=== PATIENT | male | born 1980 | race African-American/Black ===

== ENCOUNTER 2022-10-23 08:51 | Emergency (ER) | payer BC | END 2022-10-23 09:39 | disposition home or self-care (01) | LOC: NAV ERS 08:51 | DX: Z48.817 Encounter for surgical aftercare following surgery on the skin and subcutaneous tissue (principal); L02.213 Cutaneous abscess of chest wall; F17.210 Nicotine dependence, cigarettes, uncomplicated | CPT/HCPCS: 99282 ==

== ENCOUNTER 2022-10-27 17:14 | Emergency (ER) | payer BC | END 2022-10-27 18:32 | disposition home or self-care (01) | LOC: NAV ERS 17:14 | DX: L02.213 Cutaneous abscess of chest wall (principal); Z48.00 Encounter for change or removal of nonsurgical wound dressing; F17.210 Nicotine dependence, cigarettes, uncomplicated | CPT/HCPCS: 10060 ==

== ENCOUNTER 2022-10-30 17:11 | Emergency (ER) | payer BC | END 2022-10-30 18:22 | disposition home or self-care (01) | LOC: NAV ERS 17:11 | DX: Z48.00 Encounter for change or removal of nonsurgical wound dressing (principal); F17.210 Nicotine dependence, cigarettes, uncomplicated | CPT/HCPCS: 99282 ==

== ENCOUNTER 2022-11-01 17:20 | Emergency (ER) | payer BC | END 2022-11-01 18:09 | disposition home or self-care (01) | LOC: NAV ERS 17:20 | DX: Z48.817 Encounter for surgical aftercare following surgery on the skin and subcutaneous tissue (principal); N61.1 Abscess of the breast and nipple; F17.210 Nicotine dependence, cigarettes, uncomplicated | CPT/HCPCS: 99282 ==

== ENCOUNTER 2023-01-20 10:35 | Emergency (ER) | payer BC ==
[2023-01-20] MEDS ORDERED: Naproxen 500 MG TAB ONE (11:14)
== END 2023-01-20 12:28 | disposition home or self-care (01) ==
LOC: NAV ERS 10:35
DX: S93.412A Sprain of calcaneofibular ligament of left ankle, initial encounter (principal); F17.210 Nicotine dependence, cigarettes, uncomplicated; R03.0 Elevated blood-pressure reading, without diagnosis of hypertension; X50.0XXA Overexertion from strenuous movement or load, initial encounter

== ENCOUNTER 2023-10-23 07:29 | Emergency (ER) | payer BC, SELFPAY | END 2023-10-23 08:25 | disposition home or self-care (01) | LOC: NAV ERS 07:29 | DX: I88.9 Nonspecific lymphadenitis, unspecified (principal); F17.210 Nicotine dependence, cigarettes, uncomplicated | CPT/HCPCS: 99283 ==

== ENCOUNTER 2023-11-15 19:53 | Emergency (ER) | payer BC, SELFPAY ==
[2023-11-15] MEDS ORDERED: Lidocaine 2% Viscous 100 ML BOTTLE ONE (20:23)
[2023-11-15] MEDS ORDERED: Mag-Al Plus 1200/1200/120 MG (30 mL) UDCUP ONE (20:23)
[2023-11-15] MEDS ORDERED: Famotidine/PF 20 mg/2ml Vial ONE (20:23)
[2023-11-15 20:46] LABS: #Basophils 0.2 thou/uL (0.0-0.2); #Eosinphils 0.2 thou/uL (0.0-0.7); #Lymphocytes 3.3 thou/uL (1.20-3.40); #Monocytes 0.4 thou/uL (0.11-0.59); %Basophils 1.7 % (0.0-1.0); %Eosinophils 2.3 % (0.0-10.0); %Lymphocytes 36.4 % (21.0-51.0); %Monocytes 4.5 % (0.0-10.0); %Neutrophils 55.2 % (42.0-75.0); Hematocrit 40.9 % (42.0-52.0); Hemoglobin 13.1 g/dL (14.0-18.0); Mean Corpuscular Hemoglobin 28.8 pg (27.0-31.0); Mean Platelet Volume 5.9 fL (7.4-10.4); Platelet Count 447 10x3/uL (130-400); RBC Distribution Width 12.5 % (11.5-14.5); Red Blood Cell (RBC) Count 4.54 mill/uL (4.70-6.10)
[2023-11-15 21:00] LABS: Chloride 101 mmol/L (98-107); Potassium 3.4 mmol/L (3.5-5.1); Sodium 140 mmol/L (136-145)
[2023-11-15 21:01] LABS: ALT (SGPT) 41 U/L (8-55); AST (SGOT) 21 U/L (5-34); Albumin 3.8 g/dL (3.5-5.0); Alkaline Phosphatase 78 U/L (40-110); Anion Gap 15 mmol/L (10-20); BUN (Urea Nitrogen) 17 mg/dL (8.9-20.6); Bilirubin, Total 0.2 mg/dL (0.2-1.2); Calc. Creatinine Clearance 0 mL/min (70-130); Carbon Dioxide 27 mmol/L (22-29); Estimated GFR 111; Globulin 4.6 g/dL (2.4-3.5); Glucose 90 mg/dL (70-105); Lipase 18 U/L (8-78); Protein, Total 8.4 g/dL (6.0-8.3); Troponin I Less than 0.010 ng/mL (< 0.028)
[2023-11-15] MEDS ORDERED: Ondansetron PF 4 MG/2 ML Vial ONE (21:26)
[2023-11-15] MEDS ORDERED: Morphine 4 MG/ML VIAL ONE (21:26)
== END 2023-11-15 23:15 | disposition home or self-care (01) ==
LOC: NAV ERS 19:53
DX: K80.50 Calculus of bile duct without cholangitis or cholecystitis without obstruction (principal); E78.5 Hyperlipidemia, unspecified; Z79.899 Other long term (current) drug therapy
CPT/HCPCS: 74177; 80053; 83605; 83690; 84484; 85025; 96374; 96375; J2272; J2405; J3490

== ENCOUNTER 2024-04-06 10:16 | Emergency (ER) | payer SELFPAY ==
[2024-04-06] MEDS ORDERED: Ketorolac Tromethamine 30 MG (1 mL) VIAL ONE (10:25)
== END 2024-04-06 11:15 | disposition home or self-care (01) ==
LOC: NAV ERS 10:16
DX: M79.671 Pain in right foot (principal); Z55.6 Problems related to health literacy
CPT/HCPCS: 96372; 99283; J1885